=== PATIENT | male | born 1940 | race Caucasian/White ===

== ENCOUNTER 2018-01-03 08:14 | Inpatient (IN) | payer MEDICARE ==
[~2018-01-03] VITALS: Ht 180.3 cm; Wt 107.0 kg
[~2018-01-03 08:14] MED LIST: ASPI-621 PO; B12 PO; BACITRACIN 50,000 UNIT ONE; CARV3.1212 PO; CLOP75TA52 PO; GLUC-121 PO; HEPARIN 1,000 UNITS/ML, 10ML ONE; LUTEIN; MAGNESIUM; MILK THISTLE; OMEGA 3; PROTAMINE SULFATE 10 MG/ML, 5ML ONE; SIMV40TA3 PO; THROMBIN 20,000 UNIT VIAL TP ONE; VITAMIN C PO; VITAMIN D3
[2018-01-03] MEDS ORDERED: LACTATED RINGERS 1,000 ML IV SCH ×2 (08:37→16:00)
[2018-01-03 09:09] VITALS: BP 148/94
[2018-01-03 09:13] LABS: BASOPHILS # (AUTO) 0.03 x10^3/uL (0-0.1); BASOPHILS % (AUTO) 1 % (0-1); EOSINOPHILS # (AUTO) 0.14 x10^3/uL (0-0.4); EOSINOPHILS % (AUTO) 2 % (1-7); LYMPHOCYTES # (AUTO) 1.81 x10^3/uL (1-3.4); LYMPHOCYTES % (AUTO) 33 % (22-44); MD NO; MEAN CORPUSCULAR HEMOGLOBIN 28.4 pg (27.5-34.5); MEAN CORPUSCULAR HGB CONC 33.3 g/dL (33.2-36.2); MEAN CORPUSCULAR VOLUME 85.3 fL (81-97); MEAN PLATELET VOLUME 7.9 fL (7.4-10.4); MONOCYTES # (AUTO) 0.76 x10^3/uL (0.2-0.8); MONOCYTES % (AUTO) 14 % (2-9); NEUTROPHILS # (AUTO) 2.84 x10^3/uL (1.8-6.8); NEUTROPHILS % (AUTO) 51 % (42-75); PLATELET COUNT 226 x10^3/uL (130-400); RED BLOOD COUNT 5.38 x10^6/uL (4.38-5.82); RED CELL DISTRIBUTION WIDTH 13.7 % (9.4-14.8)
[2018-01-03 09:24] LABS: ANION GAP 6 mmol/L (5-15); CALCIUM 8.5 mg/dL (8.5-10.1); CHLORIDE 107 mmol/L (98-107)
[2018-01-03] MEDS ORDERED: FENTANYL PF 250 MCG/5ML ONE (10:39)
[2018-01-03] MEDS ORDERED: PROPOFOL 10 MG/ML, 20ML ONE (10:53)
[2018-01-03] MEDS ORDERED: ONDANSETRON 2MG/ML, 2ML ONE (10:53)
[2018-01-03] MEDS ORDERED: DEXAMETHASONE 4 MG/ML, 5ML ONE (10:53)
[2018-01-03] MEDS ORDERED: ROCURONIUM 10 MG/ML,10ML ONE (10:53)
[2018-01-03] MEDS ORDERED: EPHEDRINE 50 MG/ML, 1ML ONE (10:53)
[2018-01-03] MEDS ORDERED: SUCCINYLCHOLINE 20 MG/ML, 10ML ONE (10:53)
[2018-01-03] MEDS ORDERED: CEFAZOLIN 1,000 MG ONE (10:53)
[2018-01-03] MEDS ORDERED: BUPIVACAINE/PF 0.25% INFIL ONE (12:02)
[2018-01-03] MEDS ORDERED: EPINEPHRINE 1 MG/ML, 1ML INFIL ONE (12:04)
[2018-01-03] MEDS ORDERED: MEPERIDINE/PF 25MG/0.5ML IVPush PRN (13:30)
[2018-01-03] MEDS ORDERED: OXYcodone 5 MG/5 ML ORAL.SOL UDC PO PRN (13:30)
[2018-01-03] MEDS ORDERED: ONDANSETRON ODT 8 MG PO PRN (13:30)
[2018-01-03] MEDS ORDERED: ALBUTEROL SULFATE 2.5 MG/3 ML NPPB PRN (13:30)
[2018-01-03] MEDS ORDERED: ACETAMINOPHEN 325 MG TABLET PO PRN ×2 (13:30→16:00)
[2018-01-03] MEDS ORDERED: FENTANYL PF 100 MCG/2ML IV PRN (13:30)
[2018-01-03] MEDS ORDERED: hydrALAzine 20 MG/ML, 1ML IV PRN ×2 (13:30→16:00)
[2018-01-03] MEDS ORDERED: MIDAZOLAM 1 MG/ML, 2ML IV PRN (13:30)
[2018-01-03] MEDS ORDERED: PROMETHAZINE 12.5 MG SUPP PR PRN (13:30)
[2018-01-03] MEDS ORDERED: PROMETHAZINE 25 MG/ML, 1ML IV PRN (13:30)
[2018-01-03] MEDS ORDERED: LABETALOL 5MG/ML, 20ML IV PRN ×2 (13:30→16:00)
[2018-01-03] MEDS ORDERED: BUPIVACAINE/PF 0.25% ONE (14:04)
[2018-01-03] MEDS ORDERED: HEPARIN 1,000 UNITS/ML, 10ML ONE (14:04)
[2018-01-03] MEDS ORDERED: ACETAMINOPHEN 650 MG/20.3 ML UDC ONE (14:19)
[2018-01-03] MEDS ORDERED: MORPHINE SULFATE 4 MG/ML, 1ML ONE (14:20)
[2018-01-03] MEDS ORDERED: OXYcodone 5 MG/5 ML ORAL.SOL UDC ONE (14:20)
[2018-01-03] MEDS: MORPHINE SULFATE 4 MG/ML, 1ML IVPush PRN ×2 (14:40→14:45)
[2018-01-03] MEDS ORDERED: ONDANSETRON 2MG/ML, 2ML IV PRN (16:00)
[2018-01-03] MEDS ORDERED: HYDROcodone/APAP 5/325 TABLET PO PRN (16:00)
[2018-01-03] MEDS ORDERED: morphine SULFATE 10 MG/ML, 1ML IV PRN (16:00)
[2018-01-03 19:34] VITALS: BP 128/78
[2018-01-03] MEDS: CEFAZOLIN PMX 2GM/50ML 50 ML IVPB SCH (21:08)
[2018-01-04 00:24] VITALS: BP 116/58
[2018-01-04 04:48] VITALS: BP 104/59
[2018-01-04] MEDS: CEFAZOLIN PMX 2GM/50ML 50 ML IVPB SCH (05:02)
[2018-01-04 05:24] LABS: BASOPHILS # (AUTO) 0.01 x10^3/uL (0-0.1); BASOPHILS % (AUTO) 0 % (0-1); EOSINOPHILS % (AUTO) 0 % (1-7); LYMPHOCYTES # (AUTO) 1.05 x10^3/uL (1-3.4); LYMPHOCYTES % (AUTO) 8 % (22-44); MD NO; MEAN CORPUSCULAR HGB CONC 33.8 g/dL (33.2-36.2); MEAN CORPUSCULAR VOLUME 85.7 fL (81-97); MEAN PLATELET VOLUME 7.8 fL (7.4-10.4); MONOCYTES # (AUTO) 0.67 x10^3/uL (0.2-0.8); MONOCYTES % (AUTO) 5 % (2-9); NEUTROPHILS # (AUTO) 10.93 x10^3/uL (1.8-6.8); NEUTROPHILS % (AUTO) 86 % (42-75); PLATELET COUNT 182 x10^3/uL (130-400); RED BLOOD COUNT 4.32 x10^6/uL (4.38-5.82); RED CELL DISTRIBUTION WIDTH 13.7 % (9.4-14.8)
[2018-01-04 05:29] LABS: ANION GAP 8 mmol/L (5-15); CALCIUM 7.8 mg/dL (8.5-10.1); CHLORIDE 108 mmol/L (98-107); CREATININE 0.81 mg/dL (0.7-1.3)
[2018-01-04] MEDS ORDERED: ASPIRIN 81 MG TABLET EC PO SCH (06:00)
[2018-01-04 07:44] VITALS: BP 121/62
[2018-01-04] MEDS ORDERED: CYANOCOBALAMIN 1,000 MCG TABLET PO SCH (09:00)
[2018-01-04] MEDS ORDERED: CLOPIDOGREL 75 MG TABLET PO SCH (09:00)
[2018-01-04] MEDS ORDERED: CARVEDILOL 3.125 MG TABLET PO SCH (09:00)
[2018-01-04] MEDS ORDERED: ENOXAPARIN 40 MG/0.4 ML SQ SCH (09:00)
[2018-01-04 11:38] VITALS: BP 119/63
[2018-01-04] MEDS ORDERED: HYDR-3240 PO (12:01)
== END 2018-01-04 12:48 | disposition home or self-care (01) | DRG 269 ==
LOC: ORIP 08:14 → EDSTATUS 10:30 → 4NOR 15:12 → DCLOUNGE 01-04 12:33
PROVIDERS: ADMIT Surgery; ATTEND Surgery
PROC: 04V03DZ Restriction of Abdominal Aorta with Intraluminal Device, Percutaneous Approach (ICD-10-PCS; principal; 2018-01-03 10:30)
DX: I71.4 Abdominal aortic aneurysm, without rupture (principal); E78.5 Hyperlipidemia, unspecified; I10 Essential (primary) hypertension; I25.10 Atherosclerotic heart disease of native coronary artery without angina pectoris
CPT/HCPCS: 34701; 34705; 34812; 36415; 74021; 80048; 85025; 86850; 86900; 93005; J0171; J0690; J1100; J1644; J1650; J2405; J2704; J2720; J3010; J3490; C1751; C1768; C1769; C1894; J0330; J7120

== ENCOUNTER → 2018-02-22 | Outpatient (CLI) | payer MEDICARE ==
[~2018-02-22] MED LIST changes: -BACITRACIN 50,000 UNIT ONE; -HEPARIN 1,000 UNITS/ML, 10ML ONE; +HYDR-3240 PO; +OMNIPAQUE 350 MG/ML, 100ML BOTTLE ONE; -PROTAMINE SULFATE 10 MG/ML, 5ML ONE; -THROMBIN 20,000 UNIT VIAL TP ONE
== END | disposition home or self-care (01) ==
LOC: CFH 09:04
PROVIDERS: ATTEND Surgery
DX: I71.4 Abdominal aortic aneurysm, without rupture (principal); I10 Essential (primary) hypertension; I25.10 Atherosclerotic heart disease of native coronary artery without angina pectoris; E78.5 Hyperlipidemia, unspecified
CPT/HCPCS: 74174; 82565; Q9967

== ENCOUNTER → 2018-10-05 | Outpatient (CLI) | payer MEDICARE ==
[~2018-10-05] MED LIST changes: -ASPI-621 PO; +ASPI81TA45 PO; -OMNIPAQUE 350 MG/ML, 100ML BOTTLE ONE
== END | disposition home or self-care (01) ==
LOC: RAD 10:10
PROVIDERS: ATTEND Surgery
DX: G89.29 Other chronic pain (principal); Z95.828 Presence of other vascular implants and grafts
CPT/HCPCS: 72190; 74021

== ENCOUNTER 2019-06-06 07:51 | Outpatient (CLI) | payer MEDICARE | END 2019-06-06 23:59 | disposition home or self-care (01) | LOC: CVU 07:51 | PROVIDERS: ATTEND Surgery | DX: I71.4 Abdominal aortic aneurysm, without rupture (principal); E78.5 Hyperlipidemia, unspecified; Z87.891 Personal history of nicotine dependence; Z83.3 Family history of diabetes mellitus; Z82.49 Family history of ischemic heart disease and other diseases of the circulatory system; I10 Essential (primary) hypertension | CPT/HCPCS: 93978 ==